=== PATIENT | female | born 1935 | race Caucasian/White ===

== ENCOUNTER 2020-02-15 10:14 | Day surgery (SDC) | payer MEDICARE, OTHER ==
--- NOTE | 2020-02-15 09:35 | HP ---
DATE OF SURGERY: 02/15/2020 HISTORY OF PRESENT ILLNESS: The patient is an 84 year old who had breast cancer two or three times in the past and now some bone metastasis and fractured ribs. She is in need of Port-A-Cath for IV treatments. PAST MEDICAL HISTORY: Right breast cancer in the past. Hypertension. Denies any heart disease at this time. PAST SURGICAL HISTORY: Right breast surgery in the past. History of heart cath in the past. Back surgery. in the past. Hysterectomy and tubal in the past. MEDICATIONS: Hydrochlorothiazide, vitamin D3, hair/skin/nail vitamins. She has been on some hormones. Restasis eye drops, Norvasc, Aleve PM. ALLERGIES: SULFA. FAMILY HISTORY: Negative in regards to this problem. SOCIAL HISTORY: Denies alcohol abuse. REVIEW OF SYSTEMS: Fourteen systems reviewed per admission assessment. No chest pain or palpitations other systems negative or noncontributory as above and per preadmission questionnaire. PHYSICAL EXAMINATION: GENERAL: No acute distress. HEENT: Sclerae nonicteric. NECK: No JVD. CHEST: Equal excursion, nonlabored breathing. CVS: Regular rate and rhythm. ABDOMEN: Soft. EXTREMITIES: No cyanosis. NEURO: Alert, oriented, moving extremities symmetrically. IMPRESSION: Recurrent breast cancer, in need of Port-A-Cath placement for further IV treatments. Risks and benefits explained in detail including but not limited to bleeding or infection, risk of thrombosis or pneumothorax, risk of arterial injury, risk of port or catheter fracture, failure or infection possibly requiring removal or replacement, remote risk of major venous tear, risk of anesthesia, DVT, PE, pneumonia or cardiopulmonary event but not limited to, consent was obtained, will proceed with Port-A-Cath placement as an outpatient. The patient requests general anesthetic for the procedure.
[~2020-02-15 10:14] MED LIST: CEFAZOLIN 2 GM-D5W BAG** 2 GM/50 ML ML IV SCH; Lactated Ringers 1,000 ML IV ONE; Lactated Ringers 1,000 ML IV SCH; XYLOCAINE 1% HCL 20 ML MDV ONE
[2020-02-15] MEDS ORDERED: CEFAZOLIN 2 GM-D5W BAG** 2 GM/50 ML ML IV ONE (10:18)
[2020-02-15] MEDS ORDERED: Lactated Ringers 1,000 ML IV ONE (10:18)
[2020-02-15] MEDS ORDERED: DIPRIVAN 200 MG/20 ML IV ONE (11:55)
[2020-02-15] MEDS ORDERED: Zofran 4 MG/2 ML VIAL ONE (11:55)
[2020-02-15] MEDS ORDERED: SUBLIMAZE 100 MCG/2 ML ONE (11:55)
[2020-02-15] MEDS ORDERED: Decadron 4 MG INJ ONE (11:55)
[2020-02-15] MEDS ORDERED: Amidate 20 MG/10 ML IV ONE (11:55)
[2020-02-15] MEDS ORDERED: Xylocaine-Mpf 2% 5 Ml Vial ONE (11:55)
--- NOTE | 2020-02-15 13:34 | XRAY ---
Indication: Right port placement. Intraoperative fluoroscopy was provided for 2 seconds. Single digital spot images submitted for interpretation demonstrates right Port-A-Cath with tip projecting over the SVC. Correlate with intraoperative findings/report.
[2020-02-15] MEDS ORDERED: NORCO 5/325 MG ONE (13:48)
[2020-02-15] MEDS ORDERED: NORCO 5/325 MG PO PRN (13:49)
--- NOTE | 2020-02-15 14:44 | OP ---
SURGERY DATE/TIME: 02/15/2020 1220 PREOPERATIVE DIAGNOSIS: Breast cancer, need for long-term IV access for IV treatments. POSTOPERATIVE DIAGNOSIS: Breast cancer, need for long-term IV access for IV treatments. PROCEDURE: 1) Tunnel Port-A-Cath placement with C-arm fluoroscopy, ultrasound guided interpretation and management cannulation right internal jugular vein. 2) Ultrasound guided cannulation left internal jugular vein with ultrasound guided interpretation and management (unable to pass wire far enough to place Port-A-Cath). SURGEON: Dr. Mehul Bhakta. ANESTHESIA: General. ESTIMATED BLOOD LOSS: Minimal. INDICATIONS: As noted above. Risks and benefits explained in detail and not limited to and consent obtained. DESCRIPTION OF PROCEDURE AND FINDINGS: The patient is taken to the operating room. She has pain from breast cancer it was felt that she would benefit. General anesthesia was introduced. Neck and chest prepped and draped in usual sterile fashion. After official time out and no disagreement with planned procedure, in Trendelenburg position. 1% Lidocaine local infiltrated left subclavicular area. 18 gauge cannulation needle inserted on first pass. Good dark nonpulsatile venous return was obtained. However despite good return the guide wire would not pass through more than a few centimeters past the end of the needle. Therefore it was not deep enough for safe placement. It was then elected the Port-A-Cath catheter itself was elected to go to the jugular approach on the left. Ultrasound guided sterile jelly, sterile probe cover with compressible left internal jugular vein identified. 1% lidocaine local infiltrated. 18 gauge cannulation needle inserted on first pass. Good dark nonpulsatile venous return. Guide wire however despite good excellent nonvenous return, the guide wire would only pass a few centimeter past the end of the needle and then would curl backwards. Whether she had some scarring down here or cannulation collateral either way the guide wire was not able to be safely passed further to allow for safe placement of the port on this side. She wanted to avoid using the right subclavian and then next best option was the right jugular. This area ultrasound probe, sterile cover, sterile jelly used. Used the easily compressible even larger right internal jugular vein identified. 1% lidocaine local was infiltrated. Cannulation needle inserted first pass. Good dark, nonpulsatile venous return. Guide wire however passed with ease on this side and confirmed down the superior vena cava on C-arm fluoroscopy. It was followed by anesthetizing tunnel track and the port pocket area. Transverse incision made. Again staying medial to avoid any issues concerning her right upper extremity. Subcu port pocket created with aid of cautery. Port secured to the chest wall with Prolene suture x2. It should be noted the original ultrasound probe was not directed appropriately and the port catheter had been cannulated and was necessary to discard. The port catheter was obtained this was easily tunneled from cannulation stab wound in the neck down to the pocket down on the chest. Dilator break away sheath easily fed over the guide wire and dilator removed. The catheter fed down break away sheath. The tip noted in distal SVC on C-arm fluoroscopy. Catheter cut to appropriate length, snapped on the port with the hub. It was flushed with dark, nonpulsatile venous return, flushed with injectable heparinized saline with ease provided by the staff. Good hemostasis noted. Pictures had been taken. The catheter snapped on the port. Lung victoria noted to be up. The tip of the catheter in good location in this particular individual. Catheter is flushing and aspirated with ease and flushing with heparinized saline with ease. Subcu closed with 3-0 Vicryl, Skin closed with 4-0 Vicryl. Cannulation stab wound closed with 4-0 Vicryl. Steri-Strips and sterile dressing applied. The patient tolerated the procedure well. There were no immediate complications. There was no family available to discuss the findings with out in the waiting area.
[2020-02-15 16:01] VITALS: O2SAT 92
[2020-02-15 17:12] VITALS: BP 164/79; PULSE 85
== END 2020-02-15 17:00 | disposition home or self-care (01) ==
LOC: SDC 10:14
PROVIDERS: ATTEND Surgery
DX: C50.911 Malignant neoplasm of unspecified site of right female breast (principal); C79.51 Secondary malignant neoplasm of bone; Z85.3 Personal history of malignant neoplasm of breast; I10 Essential (primary) hypertension; Z79.899 Other long term (current) drug therapy
CPT/HCPCS: 36571; 76937; 77001; 93005; C1788; 99100; J0690; J1100; J1642; J2405; J2704; J3010; A9270-GY